=== PATIENT | male | born 1960 | race Hispanic/Latino ===

== ENCOUNTER → 2017-12-08 | Outpatient (CLI) | payer OTHER | END | disposition home or self-care (01) | LOC: RAH 08:53 | PROVIDERS: ATTEND Orthopaedic Surgery | DX: I25.10 Atherosclerotic heart disease of native coronary artery without angina pectoris (principal); I42.9 Cardiomyopathy, unspecified; I48.91 Unspecified atrial fibrillation | CPT/HCPCS: 93005; 93306 ==

== ENCOUNTER → 2023-07-16 | Outpatient (CLI) | payer OTHER | END | disposition home or self-care (01) | LOC: SHCH 14:20 | PROVIDERS: ATTEND Internal Medicine Cardiovascular Disease | DX: I51.7 Cardiomegaly (principal); I48.0 Paroxysmal atrial fibrillation | CPT/HCPCS: 93306 ==

== ENCOUNTER → 2024-06-28 | Outpatient (CLI) | payer OTHER | END | disposition home or self-care (01) | LOC: LAB 12:05 | PROVIDERS: ATTEND Otolaryngology Plastic Surgery within the Head & Neck | DX: H90.3 Sensorineural hearing loss, bilateral (principal) | CPT/HCPCS: 36415; 82565; 84520 ==

== ENCOUNTER → 2024-07-05 | Outpatient (CLI) | payer OTHER ==
[~2024-07-05] MED LIST: IOHEXOL 350 MG/ML 100ML INFUS..BTL IV ONE
--- NOTE | 2024-07-05 15:43 | HMCIMG ---
CT ORB/MIKA/EAR W/WO CONTRAST HISTORY: Sensorineural hearing loss, bilateral COMPARISON: None TECHNIQUE: Multiple sequential high resolution axial images of temporal bones were obtained. Post processing coronal reconstruction images were also obtained. FINDINGS: Normal aeration of middle ears and mastoid air cells are noted bilaterally. Internal auditory canals are grossly symmetric bilaterally. Both scuti are grossly intact. The ossicula chains are grossly intact bilaterally. Retropharyngeal soft tissue prominence is seen. There are erosive changes are noted of the TMJ joints bilaterally. IMPRESSION: 1. No evidence of otomastoiditis changes are seen. CT was performed with one or more following dose reduction techniques: automated exposure control, adjustment of the mA and kv according to patient's size, or use of a iterative reconstruction technique.
--- NOTE | 2024-07-05 15:46 | HMCIMG ---
CT HEAD/BRAIN W/WO CONTRAST HISTORY: Sensorineural hearing loss COMPARISON: None TECHNIQUE: Multiple sequential axial images of the head were obtained from the base of the skull through vertex. Patient was given 50 cc of Omnipaque through intravenous route. FINDINGS: The ventricles and extraventricular CSF spaces are dilated consistent with cerebral atrophy. Nonspecific white matter changes seen. There is no midline shift, mass effect or herniation. No acute intracranial bleed is seen. Visualized portion of the paranasal sinuses are grossly within normal limits. No abnormal enhancement is seen. IMPRESSION: 1. No acute intracranial bleed is seen. 2. Atrophy with white matter changes. No abnormal enhancement is seen. CT was performed with one or more following dose reduction techniques: automated exposure control, adjustment of the mA and kv according to patient's size, or use of a iterative reconstruction technique.
== END | disposition home or self-care (01) ==
LOC: RAH 13:23
PROVIDERS: ATTEND Otolaryngology Plastic Surgery within the Head & Neck
DX: G31.89 Other specified degenerative diseases of nervous system (principal); H90.3 Sensorineural hearing loss, bilateral
CPT/HCPCS: 70470; 70482; Q9967